=== PATIENT | female | born 1960 | race Caucasian/White ===

== ENCOUNTER 2021-12-30 05:35 | Emergency (ER) | payer OTHER ==
[2021-12-30 07:19] LABS: Absolute Lymphocytes (CBC) 0.5 K/uL (0.7-4.9); Lymphocytes % 14.3 % (15.3-44.8)
[2021-12-30 07:31] LABS: Albumin 3.2 g/dL (3.4-5.0); Bilirubin Total 0.7 mg/dL (0.2-1.0); Potassium 4.9 mmol/L (3.5-5.1); Protein, Total 7.1 g/dL (6.4-8.2)
[2021-12-30 07:50] LABS: RBC Red Blood Cell Count 2.46 M/uL (3.86-4.86)
[2021-12-30 07:52] LABS: Hematocrit 24.3 % (36.0-45.0)
[2021-12-30] MEDS ORDERED: LACTULOSE 20 GM/30 ML UCUP ONE (07:58)
--- NOTE | 2021-12-30 08:01 | EDPHYS ---
Physician Documentation [facility] Name: Vaishali Mariano Age: 61 yrs Sex: Female : 1960 Arrival Date: 12/30/2021 Time: 05:46 Bed 18 Private MD: ED Physician Marco Antonio Johnson HPI: 12/30 07:54 This 61 yrs old Female presents to ER via Wheelchair with complaints of Abdominal kb Problem. 07:54 The patient presents with abdominal distention. Onset: The symptoms/episode kb began/occurred yesterday. The symptoms do not radiate. Associated signs and symptoms: none. The symptoms are described as tightness. Modifying factors: The symptoms are alleviated by nothing, the symptoms are aggravated by nothing. Severity of pain: At its worst the pain was mild in the emergency department the pain is unchanged. The patient has experienced similar episodes in the past, chronically. The patient has not recently seen a physician. Pt states she normally gets a paracentesis done weekly. Last time was December 22. Came in this morning because she feels like she needs a paracentesis, abd is tighter than normal. Denies SOB. [place] Has appt for paracentesis scheduled for Saturday. Historical: - Allergies: 06:02 PENICILLINS; al4 - PMHx: 06:04 liver cancer; insulin dependent; kidney failure stage 5; al4 - Immunization history:: Adult Immunizations unknown. - Social history:: Smoking status: Patient reports the use of cigarette tobacco products, denies chronic smoking, but will smoke occasionally. ROS: 07:47 Constitutional: Negative for fever, chills, and weight loss. kb 07:47 Abdomen/GI: Positive for abdominal distension. 07:47 All other systems are negative. Exam: 07:48 Constitutional: This is a well developed, well nourished patient who is awake, alert, kb and in no acute distress. Head/Face: Normocephalic, atraumatic. ENT: Moist Mucous membranes Cardiovascular: Regular rate and rhythm with a normal S1 and S2. No gallops, murmurs, or rubs. No pulse deficits. Respiratory: Respirations even and unlabored. No increased work of breathing. Talking in full sentences Abdomen/GI: Soft, non-tender. No distention Skin: Warm, dry with normal turgor. Normal color. MS/ Extremity: Pulses equal, no cyanosis. Neurovascular intact. Full, normal range of motion. 07:48 Neuro: Orientation: to person, place, time \\T\\ situation. Mentation: able to follow commands, sleepy. Vital Signs: 06:00 BP 97 / 56; Pulse 80; Resp 20 S; Temp 97.6(O); Pulse Ox 100% on R/A; Pain 5/10; al4 09:00 BP 96 / 55; Pulse 80; Resp 16; Pulse Ox 98% ; cb5 10:46 BP 113 / 71; Pulse 77; Resp 16; Pulse Ox 100% ; Pain 0/10; cb5 11:15 BP 91 / 57; Pulse 80; Resp 16; Pulse Ox 99% ; cb5 11:45 BP 97 / 48; Pulse 66; Resp 16; Pulse Ox 98% ; Pain 0/10; cb5 MDM: 06:47 Patient medically screened. kb 07:48 Data reviewed: vital signs, nurses notes. Data interpreted: Pulse oximetry: on room air kb is 100 %. Interpretation: normal. Counseling: I had a detailed discussion with the patient and/or guardian regarding: the historical points, exam findings, and any diagnostic results supporting the discharge/admit diagnosis, lab results, the need for further work-up and treatment in the hospital. 07:56 Physician consultation: Jesus Ware MD was contacted at 07:56, regarding admission, kb to the telemetry unit. patient's condition, and will see patient in ED. ED course: Pt states her creatinine is normally 4. States she is supposed to get started on dialysis next week, has preop scheduled. . 09:05 ED course: Dr Ware evaluated pt in ER. Pt is refusing admission at this time. Dr Chaz lux recommended second dose of lactulose (lactulose enema preferred, but pt refuses at this time) and a dose of midodrine 10mg PO (pt's home med). Medications ordered. Will speak to pt about admission again after administration. in agreement with whatever pt wants to do. . 09:12 ED course: Pt vomited and now in agreement with lactulose enema. Ordered. kb 12:04 ED course: Pt more alert and awake after treatment. Pt wants to leave, has flight home [place] yesterday and appts set up for next week. in agreement with leaving. Will discharge home with strict return precautions. . 12/30 06:54 Order name: CBC with Diff; Complete Time: 08:40 kb 12/30 06:54 Order name: CMP; Complete Time: 07:39 kb 12/30 06:54 Order name: Lipase; Complete Time: 07:39 kb 12/30 06:54 Order name: AMMONIA; Complete Time: 07:39 kb 12/30 07:22 Order name: CBC Smear Scan; Complete Time: 08:40 EDMS 12/30 08:01 Order name: COVID-19 SARS RT PCR (Document "Date of Onset" if Symptomatic); Complete kb Time: 09:12/30 06:54 Order name: IV Saline Lock; Complete Time: 07:09 kb 12/30 06:54 Order name: Labs collected and sent; Complete Time: 07:54 kb Administered Medications: 07:55 Drug: Lactulose 20 grams Volume: 30 ml; Route: PO; cb5 09:10 Drug: NS 0.9% 250 ml Route: IV; Rate: calculated rate; Site: left antecubital; cb5 09:12 CANCELLED (Duplicate Order): Lactulose 20 grams 30 ml PO once kb 10:28 Drug: Lactulose 200 grams Route: IL; cb5 11:24 Drug: midodrine 10 mg Route: PO; cb5 Disposition: 12/31 09:35 Co-signature as Attending Physician, Marco Antonio Johnson MD I agree with the assessment and kdr plan of care. Disposition Summary: 12/30/21 12:07 Discharge Ordered Location: Home(12/30/21 12:07) kb Condition: Stable(12/30/21 12:07) kb Diagnosis - Hyperammonemia kb - Anemia in chronic kidney disease(12/30/21 12:07) kb - Chronic kidney disease, unspecified(12/30/21 12:07) kb Followup: kb - With: Emergency Department - When: As needed - Reason: Worsening of condition Followup: kb - With: Private Physician - When: 1 - 2 days - Reason: Recheck today's complaints Forms: - Medication Reconciliation Form kb - Thank You Letter kb - Antibiotic Education kb - Prescription Opioid Use kb Signatures: Dispatcher [employer] EDJennifer Bryson FNP-C FNP-Ckb Rittger, Marco Antonio, MD MD [facility] Sarthak Martin al4 Gabbi Hummel, RN RN cb5 Corrections: (The following items were deleted from the chart) 12/30 07:53 07:48 Neuro: Orientation: Mentation: able to follow commands, sleepy, kb kb 07:57 07:54 Pt states she normally gets a paracentesis done weekly. Last time was Saturday, kb December 22. Came in this morning because she feels like she needs a paracentesis, abd is tighter than normal. Denies SOB. [place]. . kb 09:12 09:04 Lactulose 20 grams 30 ml PO once ordered. kb kb 09:15 09:05 ED course: Dr Ware evaluated pt in ER. Pt is refusing admission at this time. Dr jose j Ware recommended second dose of lactulose and a dose of midodrine 10mg PO (pt's home med). Medications ordered. Will speak to pt about admission again after administration. in agreement with whatever pt wants to do. . kb 12: 08:00 Observation kb kb 12: 08:00 Jesus Ware kb kb 12: 08:00 Telemetry/MedSurg (observation) kb kb 12: 08:00 Fair kb kb 12: 08:00 an acute exacerbation kb kb 12: 08:00 are unchanged kb kb 12: 08:00 Standard kb kb 12:06 08:00 kb kb 12:06 08:00 Other encephalopathy - hepatic kb kb 12: 08:00 Anemia in chronic kidney disease kb kb 12: 08:00 Chronic kidney disease, unspecified kb kb
--- NOTE | 2021-12-30 08:01 | ER ---
Nurse's Notes [facility] Name: Vaishali Mariano Age: 61 yrs Sex: Female : 1960 Arrival Date: 12/30/2021 Time: 05:46 Bed 18 Private MD: Diagnosis: Hyperammonemia;Anemia in chronic kidney disease;Chronic kidney disease, unspecified Presentation: 12/30 06:00 Chief complaint: Patient states: abdominal pain. patient gets a paracentesis done al4 weekly and has an appointment on Saturday. patient states she needs a paracentesis today and that's what brought her in to the ED. patient is supposed to be setting up dialysis when she gets back from vacation. patients story is difficult to follow/understand, is not able to help explain as he does not understand either. Coronavirus screen: Vaccine status: Patient reports being unvaccinated. Ebola Screen: No symptoms or risks identified at this time. Initial Sepsis Screen: Does the patient meet any 2 criteria? No. Patient's initial sepsis screen is negative. Does the patient have a suspected source of infection? No. Patient's initial sepsis screen is negative. Risk Assessment: Do you want to hurt yourself or someone else? Patient reports no desire to harm self or others. Onset of symptoms was December 30, 2021. 06:00 Method Of Arrival: Wheelchair al4 06:00 Acuity: GEORGI 3 al4 Triage Assessment: 06:02 General: Appears in no apparent distress. uncomfortable, Behavior is calm. Pain: al4 Complains of pain in abdomen. Neuro: Level of Consciousness is awake, alert, confused, Oriented to person, place. Cardiovascular: Capillary refill < 3 seconds Patient's skin is warm and dry. Respiratory: Airway is patent Respiratory effort is unlabored. GI: Abdomen is distended, BM yesterday. Musculoskeletal: Circulation, motion, and sensation intact. Historical: - Allergies: 06:02 PENICILLINS; al4 - PMHx: 06:04 liver cancer; insulin dependent; kidney failure stage 5; al4 - Immunization history:: Adult Immunizations unknown. - Social history:: Smoking status: Patient reports the use of cigarette tobacco products, denies chronic smoking, but will smoke occasionally. Screenin:05 Abuse screen: Denies threats or abuse. Nutritional screening: appears thin. sf1 Tuberculosis screening: No symptoms or risk factors identified. Fall Risk None identified. Assessment: 06:05 General: Appears in no apparent distress. uncomfortable, Behavior is calm, cooperative, sf1 appropriate for age. Pain: Complains of pain in abdomen. Pain: Pain currently is 5 out of 10 on a pain scale. Neuro: Level of Consciousness is confused, thoughts are difficult to follow. Cardiovascular: No deficits noted. Respiratory: No deficits noted. GI: Abdomen is round noted to have ascites. : Reports small amount of urination, has end stage kidney disease. Derm: Skin is jaundiced. 07:00 General: Appears in no apparent distress. Behavior is calm, cooperative, appropriate cb5 for age. Pain: Complains of pain in abdomen Pain currently is 1 out of 10 on a pain scale. Neuro: Level of Consciousness is awake, alert, confused. Cardiovascular: No deficits noted. Respiratory: No deficits noted. GI: Abdomen is round noted to have ascites, Bowel sounds present X 4 quads. : Reports. EENT: No signs and/or symptoms were reported regarding the EENT system. Derm: Skin is jaundiced. Musculoskeletal: No deficits noted. 08:00 Reassessment: Patient and/or family updated on plan of care and expected duration. Pain cb5 level reassessed. 09:00 Reassessment: Patient and/or family updated on plan of care and expected duration. Pain cb5 level reassessed. 09:30 General: requested midorine from pharmacy and enema. cb5 10:00 Reassessment: Patient and/or family updated on plan of care and expected duration. Pain cb5 level reassessed. 10:30 General: pharmacy is sending midorine to ER. cb5 11:30 General: pt tolerated lactulose enema, had good results. cb5 12:01 Reassessment: pt stated she wants to go home.. cb5 12:28 Reassessment: pt refusing nurse to take vital signs, wants to go home. cb5 Vital Signs: 06:00 BP 97 / 56; Pulse 80; Resp 20 S; Temp 97.6(O); Pulse Ox 100% on R/A; Pain 5/10; al4 09:00 BP 96 / 55; Pulse 80; Resp 16; Pulse Ox 98% ; cb5 10:46 BP 113 / 71; Pulse 77; Resp 16; Pulse Ox 100% ; Pain 0/10; cb5 11:15 BP 91 / 57; Pulse 80; Resp 16; Pulse Ox 99% ; cb5 11:45 BP 97 / 48; Pulse 66; Resp 16; Pulse Ox 98% ; Pain 0/10; cb5 ED Course: 05:46 Patient arrived in ED. es 05:50 Marco Antonio Johnson MD is Attending Physician. kdr 06:02 Triage completed. al4 06:02 Arm band placed on. al4 06:05 Liza Davis, RN is Primary Nurse. sf1 06:05 Patient has correct armband on for positive identification. sf1 06:05 Inserted saline lock: 18 gauge in right forearm, using aseptic technique. Blood sf1 collected. 06:47 Jennifer Valencia [facility]-C [facility] kb 07:09 AMMONIA Sent. cb5 07:09 CBC with Diff Sent. cb5 07:09 Lipase Sent. cb5 07:09 CMP Sent. cb5 07:23 Bed in low position. Call light in reach. Side rails up X 1. Adult w/ patient. Warm mh5 blanket given. playground monitor on. Pulse ox on. NIBP on. 07:54 CBC Smear Scan Sent. cb5 07:57 Jesus Ware MD is Hospitalizing Provider. kb 12:30 IV discontinued. cb5 Administered Medications: 07:55 Drug: Lactulose 20 grams Volume: 30 ml; Route: PO; cb5 09:10 Drug: NS 0.9% 250 ml Route: IV; Rate: calculated rate; Site: left antecubital; cb5 09:12 CANCELLED (Duplicate Order): Lactulose 20 grams 30 ml PO once kb 10:28 Drug: Lactulose 200 grams Route: GA; cb5 11:24 Drug: midodrine 10 mg Route: PO; cb5 Outcome: 08:00 Decision to Hospitalize by Provider. kb 12:07 Discharge ordered by . kb 12:30 Discharged to home via wheelchair. cb5 12:30 Condition: stable 12:30 Discharge instructions given to patient. 12:30 Patient left the ED. cb5 Signatures: Jennifer Valencia FNP-C FNP-Marco Antonio Saldivar MD MD kdr Salyer, Edna es Martinez, [facility] Sarthak Martin Colleen RN RN cb5 Liza Davis RN RN sf1 Corrections: (The following items were deleted from the chart) 06: 06:00 Chief complaint: Patient states: abdominal pain. patient gets a paracentesis done al4 weekly and has an appointment on Saturday. patient states she needs a paracentesis today and that's what brought her in to the ED al4 : 06:00 BP 97 / 56; Pulse 80bpm; Resp 20bpm; Spontaneous; Pulse Ox 100% RA; Temp 97.6F al4 Oral; al4 06: 06:02 GI: Abdomen is distended, al4 al4 06: 06:02 Neuro: Level of Consciousness is awake, alert, obeys commands, confused, Oriented al4 to person, place, al4 06:08 06:05 Neuro: Level of Consciousness is confused, thoughts are difficult to follow. sf1 al4 06: 06:00 Chief complaint: Patient states: abdominal pain. patient gets a paracentesis done al4 weekly and has an appointment on Saturday. patient states she needs a paracentesis today and that's what brought her in to the ED. patient is supposed to be setting up dialysis when she gets back from vacation. al4
[2021-12-30 08:31] LABS: Blood Morphology Comment NOTED (NOT SEEN); Platelet Estimate ADEQ; White Blood Cell Scan OK (OK)
[2021-12-30 08:32] LABS: Agglutinates, Cold (RBC Morph) NOTED
[2021-12-30] MEDS ORDERED: LACTULOSE 20 GM/30 ML UCUP PR SCH (10:00)
[2021-12-30] MEDS ORDERED: NA CHLORIDE 0.9% 1,000 ML ONE (10:40)
[2021-12-30] MEDS ORDERED: MIDODRINE HCL 5 MG TABLET PO SCH (11:00)
--- NOTE | 2021-12-30 11:56 | P.CNS ---
Date of Consult: 12/30/21 Reason for Consult: hyptension, altered mental status Requesting Physician: Jennifer Valencia Primary Care Provider: out of town Chief Complaint: wants paracentesis, agitated History of Present Illness: 61yo F, PMH: liver cancer/cirrhosis on lactulose and rifaximin, CKD 5, hypotension on midodrine, insulin-dependent diabetes mellitus type 2, portal vein thrombosis Presents to the ED requesting paracentesis. Patient is from [place] and here visiting the last few days. She has paracentesis weekly, currently scheduled for Saturday. She has had some slight increase in feeling tired and slight confusion since yesterday. She is alert and oriented x4. She denies any fever/chills, no abdominal pain, no nausea/vomiting. She reports taking her lactulose daily, only had a small bowel movement yesterday. She has not had as regular bowel movements she typically has back home. She reports having chronic kidney disease and scheduled to follow-up with nephrology back home this coming week to initiate dialysis. In the ED, patient's creatinine: 4.5 which she states her baseline is in the low fours, systolic blood pressure was as low as in the 80s, which she states is normal for her, takes midodrine. She did not take her medication this morning, and was noted to hyperammonemia > 200 ED provider requested consultation for possible observation of the patient. Patient adamantly refused admission. - Past Medical/Surgical History -: liver cancer -: CKD5 -: IDDM2 -: hypotension -: Portal vein thrombosis Past Surgical History: Unable to obtain - Social History Smoking Status: Former smoker Alcohol use: No Place of Residence: Home Review of Systems 10-point ROS is otherwise unremarkable Physical Examination General: Alert, Oriented x3, Other (appears tired, slow to answer at times, slight confusion on certain specific details) HEENT: EOMI, Sclerae nonicteric Neck: Supple, No LAD Respiratory: Clear to auscultation bilaterally, Normal air movement Cardiovascular: Regular rate/rhythm, No murmurs, Edema (trace-1+ b/l pedal edema) Gastrointestinal: Other (soft, nontender, +ascites) Musculoskeletal: No erythema, No tenderness Integumentary: No rashes, No significant lesion Neurological: Normal speech, Normal strength at 5/5 x4 extr, Other (slow to answer) Laboratory Data (last 24 hrs) 12/30/21 06:55: Sodium 136, Potassium 4.9, BUN 68 H, Creatinine 4.52 H, Glucose 157 H, Total Bilirubin 0.7, AST 17, ALT 18, Alkaline Phosphatase 179 H, Lipase 231 12/30/21 06:55: WBC 3.50 L, Hgb 8.1 L, Hct 24.3 L, Plt Count 198 Physician Review Additional Text: Problem list Slight confusion, ascites, secondary to liver cirrhosis CKD5 History of liver cancer Hypotension Insulin-dependent diabetes mellitus type 2 Portal vein thrombosis, on Eliquis Patient is from [place], has a flight tomorrow at 5 AM. Scheduled for paracentesis on Saturday back home Scheduled to follow-up with nephrology this coming week to initiate dialysis Patient's ammonia level is elevated, she appears tired and with some slight confusion, however oriented x4; appears to have some very mild hepatic encephalopathy Spoke to the patient and her significant other at length, she is refusing admission, threatening to leave the hospital AMA states he would like her to be better before going home, but also wants to respect her wishes of what she wants to do After discussion with patient and her significant other, it seems patient has not been taking her lactulose as much as she should, leading to hyperammonemia Blood pressure is low as well, she takes midodrine 3 times a day, did not take this morning Given that patient does not want to be admitted to the hospital, seems to be understanding of the risks involved, and has close scheduled follow-up I think it would be within reason to give patient more lactulose / lactulose enema, restart home midodrine dose, a small bolus of IV fluid If she improves could be discharged from the ER No evidence of peritonitis, does not appear septic Explained to the patient and to titrate lactulose dosing to have 23 regular soft bowel movements daily Time Spent Managing Pts care (In Minutes): 60
[2021-12-30 12:54] VITALS: TEMP 97.6
[2021-12-30 12:59] VITALS: BP 97/48; O2SAT 98
== END 2021-12-30 12:30 | disposition home or self-care (01) ==
LOC: ER 05:35
DX: E72.20 Disorder of urea cycle metabolism, unspecified (principal); E11.22 Type 2 diabetes mellitus with diabetic chronic kidney disease; N18.5 Chronic kidney disease, stage 5; D63.1 Anemia in chronic kidney disease; F17.210 Nicotine dependence, cigarettes, uncomplicated; I81 Portal vein thrombosis; I95.9 Hypotension, unspecified; K74.60 Unspecified cirrhosis of liver; Z79.4 Long term (current) use of insulin; Z20.822 Contact with and (suspected) exposure to COVID-19; Z88.0 Allergy status to penicillin; Z85.05 Personal history of malignant neoplasm of liver; Z79.01 Long term (current) use of anticoagulants
CPT/HCPCS: 85025; 36415; 82140; 83690; 80053; 96374; 99284; U0003; J7030

== ENCOUNTER 2022-03-22 01:48 | Inpatient (IN) | payer OTHER ==
[2022-03-22 03:21] LABS: Protime INR 1.25
[2022-03-22 03:29] LABS: Albumin 2.4 g/dL (3.4-5.0); Potassium 3.9 mmol/L (3.5-5.1); Protein, Total 6.6 g/dL (6.4-8.2)
[2022-03-22] MEDS ORDERED: NA CHLORIDE 0.9% 250 ML ONE ×2 (03:31→04:47)
[2022-03-22 03:43] LABS: Absolute Lymphocytes (CBC) 0.7 K/uL (0.7-4.9); Hematocrit 29.7 % (36.0-45.0); Lymphocytes % 10.1 % (15.3-44.8); MPV 7.8 fL (7.6-11.3); RBC Red Blood Cell Count 3.05 M/uL (3.86-4.86)
--- NOTE | 2022-03-22 04:28 | ER ---
Nurse's Notes [facility] Name: Vaishali Mariano Age: 61 yrs Sex: Female : 1960 Arrival Date: 03/22/2022 Time: 01:50 Bed 13 Private MD: Diagnosis: Other ascites;End stage renal disease;Hypotension, unspecified;Hepatic Encephalopathy;Hypo-osmolality and hyponatremia Presentation: 03/22 02:01 Chief complaint: Patient states: "I need to have a paracentesis done"; Patient reports lp1 abdominal pain, nausea; Reports last paracentesis was 2 days ago; Currently being treated for colon and liver cancer. Coronavirus screen: At this time, the client does not indicate any symptoms associated with coronavirus-19. Ebola Screen: No symptoms or risks identified at this time. Risk Assessment: Do you want to hurt yourself or someone else? Patient reports no desire to harm self or others. Onset of symptoms was March 22, 2022. 02:01 Method Of Arrival: Wheelchair lp1 02:01 Acuity: GEORGI 2 lp1 02:04 Initial Sepsis Screen: Does the patient meet any 2 criteria? No. Patient's initial lp1 sepsis screen is negative. Does the patient have a suspected source of infection? No. Patient's initial sepsis screen is negative. Historical: - Allergies: 02:03 PENICILLINS; lp1 - Home Meds: 02:03 Unable to obtain [Active]; lp1 - PMHx: 02:03 insulin dependent; kidney failure stage 5; liver cancer; lp1 - Immunization history:: Client reports having NOT received the Covid vaccine. - Social history:: Smoking status: Patient reports the use of cigarette tobacco products, denies chronic smoking, but will smoke occasionally. - Family history:: not pertinent. - Hospitalizations: : No recent hospitalization is reported. Screenin:29 Abuse screen: Denies threats or abuse. Denies injuries from another. Nutritional lg3 screening: No deficits noted. Tuberculosis screening: No symptoms or risk factors identified. Fall Risk None identified. Assessment: 03:29 General: Appears in no apparent distress. uncomfortable, Behavior is calm, cooperative, lg3 flat. Pain: Complains of pain in abdomen. Neuro: Scott Agitation-Sedation Scale (RASS): -1 Drowsy Level of Consciousness is alert, obeys commands, Oriented to person, place, time, situation, Speech is normal. Cardiovascular: No deficits noted. Denies chest pain, shortness of breath, Capillary refill < 3 seconds Clubbing of nail beds is absent JVD is absent Patient's skin is warm and dry. Respiratory: No deficits noted. Airway is patent Trachea midline Respiratory effort is even, unlabored, Respiratory pattern is regular, symmetrical. GI: Abdomen is round distended, noted to have ascites, Bowel sounds present X 4 quads. Abdomen is tender to palpation X 4 quads. Reports lower abdominal pain, upper abdominal pain, bloating, nausea. : No deficits noted. No signs and/or symptoms were reported regarding the genitourinary system. EENT: No deficits noted. No signs and/or symptoms were reported regarding the EENT system. Derm: Skin is intact, is thin, Skin is dry, Skin temperature is warm generalized bruising noted to bilateral arms. dialysis port noted to right chest. Musculoskeletal: Circulation, motion, and sensation intact. Range of motion: intact in all extremities. 04:20 Reassessment: Patient appears in no apparent distress at this time. No changes from lg3 previously documented assessment. Patient and/or family updated on plan of care and expected duration. Pain level reassessed. Patient is alert, oriented x 3, equal unlabored respirations, skin warm/dry/pink. Vital Signs: 02:04 BP 82 / 51; Pulse 98; Resp 20; Temp 97.9(O); Pulse Ox 100% on R/A; Weight 56.25 kg (R); lp1 Height 5 ft. 7 in. (170.18 cm); Pain 10/10; 02:09 BP 85 / 49; lp1 03:29 BP 92 / 56; Pulse 92; Resp 19; Pulse Ox 99% on R/A; lg3 04:19 BP 97 / 62; Pulse 80; Resp 19; Pulse Ox 100% on R/A; lg3 06:43 BP 99 / 61; Pulse 91; Resp 19; Pulse Ox 100% on R/A; lg3 02:04 Body Mass Index 19.42 (56.25 kg, 170.18 cm) lp1 ED Course: 01:50 Patient arrived in ED. ja2 01:51 Alberto Ware MD is Attending Physician. rn 02:01 Arm band placed on left wrist. lp1 02:03 Triage completed. lp1 02:24 Sandra Sheikh, RN is Primary Nurse. lg3 02:35 Ptt, Activated Sent. lg3 02:35 PT-INR Sent. lg3 02:35 CBC with Diff Sent. lg3 02:35 CMP Sent. lg3 02:35 Lipase Sent. lg3 03:20 Lactate Sent. lg3 03:20 SARS-COV-2 RT PCR (Document "Date of Onset" if Symptomatic) Sent. lg3 03:20 Procalcitonin Sent. lg3 03:21 Urine Drug Screen Sent. lg3 03:21 Ptt, Activated Sent. lg3 03:23 Blood Culture Adult (2) Sent. lg3 03:23 CBC with Diff Sent. lg3 03:23 CMP Sent. lg3 03:23 Lipase Sent. lg3 03:23 Inserted saline lock: 22 gauge in left antecubital area, using aseptic technique. Blood lg3 collected. 03:29 Patient has correct armband on for positive identification. Placed in gown. Bed in low lg3 position. Call light in reach. Side rails up X 1. Client placed on continuous cardiac and pulse oximetry monitoring. NIBP monitoring applied. library monitor on. Door closed. Noise minimized. Warm blanket given. Family accompanied patient. 03:39 Abdomen In Process Unspecified. EDMS 04:26 Jesus Ware MD is Hospitalizing Provider. rn 04:45 AMMONIA Sent. lg3 06:42 No provider procedures requiring assistance completed. Patient admitted, IV remains in lg3 place. 07:16 Primary Nurse role handed off by Sandra Sheikh, RN tw2 07:16 Esperanza Rico RN is Primary Nurse. tw2 Administered Medications: 03:35 Not Given (medication not avaliable ): midodrine 5 mg PO once lg3 04:19 Drug: NS 0.9% 250 ml Route: IV; Rate: bolus; Site: left antecubital; lg3 04:59 Follow up: Response: No adverse reaction; IV Status: Completed infusion; IV Intake: lg3 250ml 04:45 Drug: NS 0.9% 250 ml Route: IV; Rate: bolus; Site: left antecubital; lg3 04:58 Follow up: Response: No adverse reaction; IV Status: Completed infusion; IV Intake: lg3 250ml 04:58 Drug: midodrine 5 mg Route: PO; lg3 04:59 Follow up: Response: No adverse reaction lg3 04:58 Drug: Lactulose 20 grams Volume: 30 ml; Route: PO; lg3 04:59 Follow up: Response: No adverse reaction lg3 Medication: 02:04 VIS not applicable for this client. lp1 Intake: 04:58 IV: 250ml; Total: 250ml. lg3 04:59 IV: 250ml; Total: 500ml. lg3 Outcome: 04:28 Decision to Hospitalize by Provider. rn 06:42 Admitted to ER Hold. Please see [facility] for further documentation. lg3 06:42 Condition: stable 06:42 Instructed on the need for admit. 12:38 Patient left the ED. ss Signatures: Dispatcher [employer] EDMS Alberto Ware MD MD rn Smirch, Shelby RN RN ss Jacey Murphy RN RN lp1 Esperanza Rico RN RN tw2 Sandra Sheikh RN RN lg3 Kyra Montes Corrections: (The following items were deleted from the chart) 02:09 02:01 Acuity: GEORGI 3 lp1 lp1
--- NOTE | 2022-03-22 04:28 | EDPHYS ---
Physician Documentation [facility] Name: Vaisahli Mariano Age: 61 yrs Sex: Female : 1960 Arrival Date: 03/22/2022 Time: 01:50 Bed 13 Private MD: ED Physician Alberto Ware HPI: 03/22 02:56 This 61 yrs old Female presents to ER via Wheelchair with complaints of Abdominal rn Problem. 02:56 The patient presents with abdominal pain that is diffuse. Onset: The symptoms/episode rn began/occurred last night. The symptoms do not radiate. Associated signs and symptoms: Pertinent negatives: nausea and vomiting, blood in stools, fever, vomiting blood. The symptoms are described as achy, crampy. 02:58 Modifying factors: The symptoms are alleviated by nothing, the symptoms are aggravated rn by movement, touching the area. Severity of pain: At its worst the pain was moderate in the emergency department the pain is unchanged. The patient has experienced similar episodes in the past. The patient has not recently seen a physician. Pt reports here on vacation, has been on beach last 2 days. No fever. Has colon cancer, and gets paracentesis weekly on mondays. Is here from [place]. Is supposed to take midodrine and unsure if taking right now. Missed 2 sessions of dialysis. . Historical: - Allergies: 02:03 PENICILLINS; lp1 - Home Meds: 02:03 Unable to obtain [Active]; lp1 - PMHx: 02:03 insulin dependent; kidney failure stage 5; liver cancer; lp1 - Immunization history:: Client reports having NOT received the Covid vaccine. - Social history:: Smoking status: Patient reports the use of cigarette tobacco products, denies chronic smoking, but will smoke occasionally. - Family history:: not pertinent. - Hospitalizations: : No recent hospitalization is reported. ROS: 02:58 Constitutional: Negative for fever, chills, and weight loss, Eyes: Negative for injury, rn pain, redness, and discharge, Cardiovascular: Negative for chest pain, palpitations, and edema, Respiratory: Negative for shortness of breath, cough, wheezing, and pleuritic chest pain, Abdomen/GI: + abd pain and distension MS/Extremity: Negative for injury and deformity, Skin: Negative for injury, rash, and discoloration, Neuro: Negative for headache, numbness, tingling, and seizure. Exam: 02:58 Constitutional: Thin female, somnolent but answers all questions and awakens to voice. rn Head/Face: Normocephalic, atraumatic. Eyes: Sunken eyes, Periorbital areas with no swelling, redness, or edema. ENT: dry MM Cardiovascular: tachycardic, regular. No pulse deficits. Respiratory: No increased work of breathing, no retractions or nasal flaring. Abdomen/GI: + distended abdomen with fluid wave, no peritoneal signs. Skin: Warm, dry MS/ Extremity: Pulses equal, no cyanosis. Neurovascular intact. Full, normal range of motion. Equal circumference. Neuro: Awake and alert, GCS 15 Vital Signs: 02:04 BP 82 / 51; Pulse 98; Resp 20; Temp 97.9(O); Pulse Ox 100% on R/A; Weight 56.25 kg (R); lp1 Height 5 ft. 7 in. (170.18 cm); Pain 10/10; 02:09 BP 85 / 49; lp1 03:29 BP 92 / 56; Pulse 92; Resp 19; Pulse Ox 99% on R/A; lg3 04:19 BP 97 / 62; Pulse 80; Resp 19; Pulse Ox 100% on R/A; lg3 06:43 BP 99 / 61; Pulse 91; Resp 19; Pulse Ox 100% on R/A; lg3 02:04 Body Mass Index 19.42 (56.25 kg, 170.18 cm) lp1 MDM: 01:51 Patient medically screened. rn 03:43 ED course: Elevated lactate, going slow with fluids 2/2 cirrhosis and ESRD. No source rn of infection identified at this time.. 04:23 Differential diagnosis: bowel obstruction, diverticulitis, non-specific abd pain, rn pancreatitis, ascites, ESRD, sepsis. Data reviewed: vital signs, nurses notes, lab test result(s), radiologic studies, CT scan, and as a result, I will admit patient. Counseling: I had a detailed discussion with the patient and/or guardian regarding: the historical points, exam findings, and any diagnostic results supporting the discharge/admit diagnosis, lab results, radiology results, the need for further work-up and treatment in the hospital. Response to treatment: the patient's symptoms have mildly improved after treatment, and as a result, I will admit patient. ED course: Pt with missed dialysis, tense ascites, low blood pressure. Will admit for evaluation of dialysis and paracentesis. . 03/22 02:19 Order name: CBC with Diff; Complete Time: 03:47 rn 03/22 02:19 Order name: CMP; Complete Time: 03:42 rn 03/22 02:19 Order name: Lipase; Complete Time: 03:42 rn 03/22 02:19 Order name: PT-INR; Complete Time: 03:42 rn 03/22 02:19 Order name: Ptt, Activated; Complete Time: 03:42 rn 03/22 02:37 Order name: Urine Drug Screen rn 03/22 02:37 Order name: Blood Culture Adult (2) rn 03/22 02:37 Order name: Procalcitonin; Complete Time: 03:42 rn 03/22 02:37 Order name: SARS-COV-2 RT PCR (Document "Date of Onset" if Symptomatic); Complete Time: rn 04:03/22 02:38 Order name: Lactate; Complete Time: 03:31 rn 03/22 04:31 Order name: AMMONIA la1 03/22 04:33 Order name: Urine Osmolality la1 03/22 04:33 Order name: Osmolality, Serum la1 03/22 04:33 Order name: Urine Sodium Random la1 03/22 02:19 Order name: IV Saline Lock; Complete Time: 03:23 rn 03/22 02:19 Order name: Labs collected and sent; Complete Time: 03:23 rn 03/22 03:33 Order name: Abdomen EDKY 03/22 04:33 Order name: Urine Potassium Random la1 03/22 04:52 Order name: Chest Single View XRAY la1 03/22 05:58 Order name: Glucose, Ancillary Testing EDKY 03/22 06:34 Order name: Lactate Sepsis 2 HR Follow-up EDKY 03/22 07:48 Order name: Glucose, Ancillary Testing EDKY 03/22 09:57 Order name: Basic Metabolic Panel EDKY 03/22 11:28 Order name: Glucose, Ancillary Testing EDKY 03/22 02:37 Order name: Cardiac monitoring; Complete Time: 03:23 rn 03/22 02:37 Order name: O2 Sat Monitoring; Complete Time: 03:23 rn Administered Medications: 03:35 Not Given (medication not avaliable ): midodrine 5 mg PO once lg3 04:19 Drug: NS 0.9% 250 ml Route: IV; Rate: bolus; Site: left antecubital; lg3 04:59 Follow up: Response: No adverse reaction; IV Status: Completed infusion; IV Intake: lg3 250ml 04:45 Drug: NS 0.9% 250 ml Route: IV; Rate: bolus; Site: left antecubital; lg3 04:58 Follow up: Response: No adverse reaction; IV Status: Completed infusion; IV Intake: lg3 250ml 04:58 Drug: midodrine 5 mg Route: PO; lg3 04:59 Follow up: Response: No adverse reaction lg3 04:58 Drug: Lactulose 20 grams Volume: 30 ml; Route: PO; lg3 04:59 Follow up: Response: No adverse reaction lg3 Disposition Summary: 03/22/22 04:28 Hospitalization Ordered Provider: Jesus Ware rn Condition: Stable rn Problem: new rn Symptoms: have improved rn Bed/Room Type: Standard rn Hospitalization Status: Inpatient Admission(03/22/22 05:11) rn Location: Intensive Care Unit(03/22/22 11:36) ja1 Room Assignment: 6-(03/22/22 11:36) [facility] Diagnosis - Other ascites rn - End stage renal disease rn - Hypotension, unspecified rn - Hepatic Encephalopathy rn - Hypo-osmolality and hyponatremia rn Forms: - Medication Reconciliation Form rn - SBAR form rn Signatures: Dispatcher [employer] [facility] Alberto Ware MD MD rn Pena, Laura, RN RN lp1 Alexander Owens FNP-C [employer]-Cla1 Saray Mantilla, RN RN Rigoberto Lynch RN RN ja1 Sandra Sheikh, RN RN lg3 Corrections: (The following items were deleted from the chart) 03:31 02:58 Abdomen Pelvis Wo Con+CT.RAD.BRZ ordered. EDKY EDKY 04:58 04:28 Telemetry/MedSurg (observation) rn cg 04:58 04:28 rn cg 05:11 04:28 Observation rn rn 11:36 04:58 BR ER HOLD cg celsa 11:36 04:58 ERHOLD- [facility]
[2022-03-22] MEDS ORDERED: MIDODRINE HCL 5 MG TABLET ONE (04:44)
[2022-03-22] MEDS ORDERED: LACTULOSE 20 GM/30 ML UCUP ONE (04:53)
--- NOTE | 2022-03-22 05:07 | P.HP ---
Certification for Inpatient Patient admitted to: Inpatient With expected LOS: >2 Midnights Patient will require the following post-hospital care: None Practitioner: I am a practitioner with admitting privileges, knowledge of patient current condition, hospital course, and medical plan of care. Services: Services provided to patient in accordance with Admission requirements found in Title 42 Section 412.3 of the Code of Federal Regulations <Alexander Owens - Last Filed: 03/22/22 04:59> Patient History Date of Service: 03/22/22 Reason for admission: Hyponatremia, hepatic encephalopathy History of Present Illness: 61-year-old female history of liver cancer/cirrhosis, ESRD on HD, chronic hypotension on midodrine, diabetes mellitus type 2insulin-dependent who has weekly paracentesis at home in [place] as well as schedule dialysis Saturday presented to the emergency department requesting a paracentesis for abdominal pain and swelling. Her who appears to be primary caregiver has stepped out and is unavailable for additional assistance with history although ED staff reports that they are here on vacation from [place] and had arranged for her to receive dialysis at a place in [place] Saturday and Saturday, she did go on Saturday but was unable to attend dialysis on Saturday they had reportedly been staying at the [facility] last few days. Patient is somnolent, confused appears encephalopathic. She was evaluated in the emergency department her labs were significant for moderate hyponatremia, hyperglycemia, normocytic anemia she does not make urine she had a CT scan of her abdomen pelvis without contrast which revealed large amount of ascites, decreased size of liver, subscapular right hepatic lobe hypodense lesion 4 x 2.5 cm and subscapular medial segment left hepatic lobe lesion measuring 3.7 x 2.2 cm findings could correspond to metastatic disease and/or primary lesion. Patient will require management of hyponatremia, hemodialysis and likely paracentesis during her hospitalization ED read wishes to admit for further evaluation and management. Patient did tolerate a dose of her home medication midodrine as well as a dose of lactulose in the emergency department by mouth her ammonia level is pending although she admits it has been "a while since she took her lactulose". - Past Medical/Surgical History -: liver cancer/cirrhosis -: CKD5 -: IDDM2 -: hypotension -: Portal vein thrombosis Past Surgical History: Unable to obtain Psychosocial/ Personal History: Patient is from [place] where she lives with her - Family History Father History Unknown: Yes - Social History Smoking Status: Unknown if ever smoked Alcohol use: No Place of Residence: Home <Alexander Owensur - Last Filed: 03/22/22 04:59> Date of Service: 03/22/22 <WareTom marquezmond - Last Filed: 03/22/22 18:07> Review of Systems 10-point ROS is otherwise unremarkable Gastrointestinal: Abdominal Pain, Distention Neurological: Confusion <Alexander Owens [place] - Last Filed: 03/22/22 04:59> Physical Examination - Physical Exam General: Alert, In no apparent distress, Oriented x2 HEENT: Atraumatic, PERRLA, Other (MM dry, eyes sunken), EOMI, Sclerae nonicteric Neck: Supple, 2+ carotid pulse no bruit, No LAD Respiratory: Normal air movement, Diminished Cardiovascular: No edema, Regular rate/rhythm, Normal S1 S2 Gastrointestinal: Hypoactive, Distended, Ascites Musculoskeletal: No tenderness Integumentary: No rashes Neurological: Normal tone, Abnormal speech (speech slurred, slow), Abnormal affect (agitated) - Studies Laboratory Data (last 24 hrs) 03/22/22 02:33: PT 13.8 H, INR 1.25, APTT 28.7 03/22/22 02:33: Sodium 121 L, Potassium 3.9, BUN 56 H, Creatinine 7.04 H*, Glucose 197 H, Total Bilirubin 1.0, AST 14 L, ALT 13, Alkaline Phosphatase 183 H, Lipase 234 03/22/22 02:33: WBC 6.9, Hgb 9.7 L, Hct 29.7 L, Plt Count 94 L <Alexander Owens Sergio Burris - Last Filed: 03/22/22 04:59> - Studies Laboratory Data (last 24 hrs) 03/22/22 02:33: PT 13.8 H, INR 1.25, APTT 28.7 03/22/22 02:33: Sodium 121 L, Potassium 3.9, BUN 56 H, Creatinine 7.04 H*, Glucose 197 H, Total Bilirubin 1.0, AST 14 L, ALT 13, Alkaline Phosphatase 183 H, Lipase 234 03/22/22 02:33: WBC 6.9, Hgb 9.7 L, Hct 29.7 L, Plt Count 94 L <Jesus Ware - Last Filed: 03/22/22 18:07> Assessment and Plan - Plan Assessment: Liver cancer/cirrhosis with hepatic encephalopathy, large volume ascites/history portal venous thrombosis Hyponatremia ESRD on HD MWF Diabetes mellitus type 2insulin-dependent with hyperglycemia Chronic hypotension on midodrine Normocytic anemia Plan: Liver cancer/cirrhosis with hepatic encephalopathy, large volume ascites/history portal venous thrombosis: GI to be consulted, continue with lactulose, rifaximin. Patient likely would benefit with paracentesis which should be available tomorrow. We will need to obtain verify/continue home medications in relation to history of venous thrombosis which was documented on previous admission but not mentioned in CT from today. Hyponatremia: Given small 250 cc NS bolus in ER, will continue with normal saline at 50 cc/h recheck chemistry every 4, nephrology consulted for assistance with electrolytes given history of ESRD on HD. Will avoid hypotonic fluids, patient does not make urine for diuresis mucous membranes are dry chest x-ray pending for further volume status evaluation. ESRD on HD MWF: Nephrology consulted dialysis Saturday missed Saturday. Diabetes mellitus type 2insulin-dependent with hyperglycemia: Every 6 hours Accu-Chek, mild sliding scale insulin Chronic hypotension on midodrine: Per chart review patient was on midodrine 10 mg p.o. 3 times daily, this medication has been continued. Normocytic anemia: Suspect anemia of chronic disease we will monitor hemoglobin, transfuse to maintain hemoglobin greater than 7. DVT PPX: Heparin Code status: Full Discharge Plan: Home Plan to discharge in: 72 Hours - Advance Directives Does patient have a Living Will: No Does patient have a Durable POA for Healthcare: No - Code Status/Comfort Care Code Status Assessed: Yes (Full code) Critical Care: No Time Spent Managing Pts Care (In Minutes): 70 <Alexander Owens - Last Filed: 03/22/22 04:59> - Plan Patient seen and examined on rounds this morning. somnolent agree with plan of care as noted above suspect encephalopathy multifactoria - metabolic and hepatic needs dialysis and lactulose lactulose enema ordered monitor in ICU <Jesus Ware - Last Filed: 03/22/22 18:07>
[2022-03-22] MEDS ORDERED: ONDANSETRON 4 MG/2 ML VIAL IV PRN (06:31)
[2022-03-22] MEDS ORDERED: NA CHLORIDE 0.9% 1,000 ML IV SCH (06:31)
[2022-03-22] MEDS: INSULIN -REGULAR HUMAN 50 UNIT/0.5 ML ML SQ SCH ×4 (07:39→21:00)
[2022-03-22] MEDS ORDERED: INSULIN -REGULAR HUMAN 50 UNIT/0.5 ML ML ONE (07:44)
[2022-03-22] MEDS: LACTULOSE 20 GM/30 ML UCUP PO SCH ×3 (08:41→21:00)
[2022-03-22] MEDS: MIDODRINE HCL 5 MG TABLET PO SCH ×3 (08:41→21:00)
[2022-03-22] MEDS: Rifaximin 550 MG Tab PO SCH ×2 (08:41→21:00)
[2022-03-22] MEDS ORDERED: NA CHLORIDE 0.9% 1,000 ML ONE (08:44)
[2022-03-22] MEDS ORDERED: APIXABAN 5 MG TABLET PO SCH (09:00)
[2022-03-22 09:56] LABS: Potassium 4.2 mmol/L (3.5-5.1)
[2022-03-22 09:58] VITALS: O2SAT 100
--- NOTE | 2022-03-22 12:38 | RAD REPORT ---
EXAM DESCRIPTION: RAD - Chest Single View - 03/22/2022 5:16 am CLINICAL HISTORY: ESRD, hyponatremia, AMS, R/O pneumonia/hypervolemia COMPARISON: None. TECHNIQUE: XR CHEST 1 VIEW 03/22/2022 4:52 AM CDT FINDINGS: Cardiac silhouette is normal in size. There is mild interstitial prominence which could be secondary to mild pulmonary edema. There is no pleural effusion. There is no pneumothorax. There are no acute osseous findings. Right IJ central line tip is in the lower SVC. IMPRESSION: No pneumothorax. No definite pneumonia. Electronically signed by: Jasiel Vo MD 03/22/2022 6:18 AM CDT Due to temporary technical issues with the PACS/Fluency reporting system, reports are being signed by the in house radiologists without review as a courtesy to insure prompt reporting. The interpreting radiologist is fully responsible for the content of the report.
[2022-03-22 14:49] LABS: Potassium 4.3 mmol/L (3.5-5.1)
[2022-03-22] MEDS ORDERED: LACTULOSE 20 GM/30 ML UCUP PR ONE (15:00)
[2022-03-22] MEDS ORDERED: NA CHLORIDE 0.9% PR SCH (15:00)
--- NOTE | 2022-03-22 16:03 | CON ---
Date of Consultation: 03/22/2022 Reason For Consult: ESRD on dialysis. History Of Present Illness: Ms. Mariano is a 61-year-old female with complicated past medical his tory significant for history of severe liver cirrhosis, hepatic encephalopathy, ESRD on dialysis, who normally resides in [place], came to [place] for vacation and had her dialysis set up, but however, has not had dialysis for about a week. Since she has come here, last dialysis was last Saturday. S he has been having worsening shortness of breath, altered mental status. She has not been taking her lactulose. [place]. She was appearing confused, encephalopathic. Her husban d brought her to the hospital and states that she has history of noncompliance and does not listen to him. She had a CT scan of her abdomen which showed large amount of ascites along with a mass in her left hepatic lobe consistent with possible hepatocellular carcinoma. The patient is being very leth argic and is unable to give any history at this time and all the history is obtained from review of [facility]. Past Medical History: Significant for history of liver cirrhosis, ESRD, insulin-dependent diabetes, hypotension, and portal vein thrombosis. Surgical history unable to obtain. Social History: The patient is from [place], where she lives with her . She has some famil y here that she has come here to spend time with. Review of Systems: Unable to be obtained. Physical Examination: Vital Signs: At this time are showing temperature of 97.9, pulse rate of 120, blood pressure 121/70, O2 saturation of 100% on room air. General: She appears cachectic. Generalized malaise, weakness, altered mental status. HEENT: Atraumatic head. She has muscle wasting. Lungs: Auscultation of lungs was clear. Abdomen: Distended with fluid thrill and fluid shift. No rebound or guarding was noted. Extremities: Showed muscle wasting and cachexia without any evidence of edema. Laboratory Data: At this time are showing sodium of 121, potassium of 4.2, chloride of 90, BUN of 57 , and creatinine of 7.06. Calcium was 8.1. CBC showing hemoglobin of 9.6 and hematocrit of 9.7, and platelet count of 94. Abdomen and pelvis CT scan images reviewed. Chest x-ray images reviewed. Impression: 1.End-stage renal disease, on dialysis. The patient will need dialysis today. However, because of her low sodium, we will try to dialyze her with a sodium bath of 130 and try to ultrafilter very mini mal at this time as her blood pressure is low and she is slightly tachycardic and may not be able to tolerate much ultrafiltration. We will use albumin as needed to assist with dialysis p.r.n. for hypo tension. 2.Hepatic encephalopathy. Lactulose has been ordered. Rifaximin has been ordered. Monitor closely . 3.Hypotension, currently on midodrine to be given prior to dialysis. 4.Severe noncompliance. 5.History of portal vein thrombosis. 6.Mass in the hepatic lobe, likely consistent with HCC given the underlying cirrhosis. Plan: Patient's condition is very guarded at this time. Continue lactulose and rifaximin. Dialysis per schedule. We will order albumin as needed for pressor support and follow up on lab closely and follow up clinical status. I have counseled on increased risk of with the patient and counsele d on compliance with treatments. LUCY/BETTYE Voice ID: [id number] Report ID: [id number]
[2022-03-22 17:43] LABS: Potassium 4.3 mmol/L (3.5-5.1)
--- NOTE | 2022-03-22 17:45 | RAD REPORT ---
EXAM DESCRIPTION: CT - Abdomen Pelvis Wo Contrast - 03/22/2022 3:37 am CLINICAL HISTORY: 61 years, Female, ABDOMINAL PAIN, ACUTE, NONLOCALIZED COMPARISON: None. TECHNIQUE: Multiple transaxial tomograms of the abdomen and pelvis were performed from the lung base s to the symphysis pubis 5 mm slice thickness at 5 mm interval reconstruction, without administration of IV and oral contrast. Multiplanar reformats in the sagittal and coronal plane were generated and reviewed. This exam was performed according to our departmental dose-optimization protocol, which includes auto mated exposure control, adjustment of the mA and/or kV according to patient size and/or use of iterat simone reconstruction technique. FINDINGS: The lack of IV and oral contrast limits evaluation of solid organs, subtle lesions cannot be excluded. The lung bases demonstrate to be clear there is a inferior portion of a central line. There is large amount of ascites. There is decrease size of the liver. There is subcapsular right hepatic lobe hypodense lesion 4 x 2.5 cm on image 27 and subcapsular medial segment left hepatic lobe lesion measuring 3.7 x 2.2 cm on bari ge 23. Grossly the unopacified pancreas, spleen and adrenal glands demonstrate to be within normal limits, n o significant focal lesions were identified. The gallbladder demonstrated presence of multiple hype rdensities corresponding to cholelithiasis. The kidneys demonstrate to be some mild atrophic. There is no evidence for nephrolithiasis and/or h ydronephrosis. No focal masses were demonstrated. Grossly the unopacified stomach, small bowel and large bowel demonstrate to be within normal limits. There is no evidence for bowel dilatation/or free air. There is mild fecal stasis. The presence of the total left hip plasty limits evaluation of the pelvis. The urinary bladder demonstrate to be within normal limits. The uterus suggest to be atrophic. No sig nificant adnexal masses. The aorta demonstrate minimal atherosclerotic disease. There is no retrope ritoneal lymphadenopathy. The bone windows demonstrate minimal degenerative changes at L4/L5. IMPRESSION: Large amount of ascites. Decreased size of the liver. There is subcapsular right hepatic lobe hypodense lesion 4 x 2.5 cm and subcapsular medial segment le ft hepatic lobe lesion measuring 3.7 x 2.2 cm findings could correspond to metastatic disease/or prim yazmin neoplasm. Cholelithiasis. Mild fecal stasis. Electronically signed by: Calvin Roberts MD 03/22/2022 4:08 AM CDT Due to temporary technical issues with the PACS/Fluency reporting system, reports are being signed by the in house radiologists without review as a courtesy to insure prompt reporting. The interpreting radiologist is fully responsible for the content of the report.
[2022-03-22] MEDS ORDERED: GLUCAGON 1 MG/VIAL IV STA (21:31)
[2022-03-23] MEDS ORDERED: D10W 125 ML IV SCH (00:29)
[2022-03-23] MEDS ORDERED: DEXTROSE 10%-WATER 500 ML IV ONE (00:41)
[2022-03-23] MEDS ORDERED: D5 0.45 NS 1,000 ML IV SCH (01:00)
--- NOTE | 2022-03-23 06:05 | P.HP ---
Certification for Inpatient Patient admitted to: Inpatient With expected LOS: >2 Midnights Practitioner: I am a practitioner with admitting privileges, knowledge of patient current condition, hospital course, and medical plan of care. Services: Services provided to patient in accordance with Admission requirements found in Title 42 Section 412.3 of the Code of Federal Regulations Patient History Date of Service: 03/23/22 Reason for admission: Hyponatremia, hepatic encephalopathy Allergies Penicillins Allergy (Unknown, Verified 03/22/22 06:31) Hives/Rash Home Medications: Insulin Glargine,Hum.rec.anlog [Basaglar Kwikpen U-100] 03/22/22 Lactulose 03/22/22 Midodrine HCl 10 mg PO 03/22/22 Omeprazole 20 mg PO 03/22/22 Ondansetron HCl 4 mg PO 03/22/22 Potassium Chloride 20 meq PO 03/22/22 Rifaximin [Xifaxan] 550 mg PO 03/22/22 - Past Medical/Surgical History Has patient received pneumonia vaccine in the past: No -: liver cancer/cirrhosis -: CKD5 -: IDDM2 -: hypotension -: Portal vein thrombosis Psychosocial/ Personal History: Patient is from [place] where she lives with her - Family History Father History Unknown: Yes - Social History Smoking Status: Unknown if ever smoked Alcohol use: No Place of Residence: Home Physical Examination - Vital Signs Temperature: 97.4 F Blood Pressure: 86/48 Pulse: 95 Respirations: 15 Pulse Ox (%): 100 Assessment and Plan - Plan Patient seen and examined on rounds this morning. somnolent agree with plan of care as noted above suspect encephalopathy multifactoria - metabolic and hepatic needs dialysis and lactulose lactulose enema ordered monitor in ICU - Advance Directives Does patient have a Living Will: No Does patient have a Durable POA for Healthcare: No
--- NOTE | 2022-03-23 06:05 | P.PN ---
Date of Service: 03/23/22 Subjective: more awake/alert, remains slightly confused still agitated demanding to leave AMA family don't want her to leave prematurely ROS: 10 point ROS unable to be obtained due to agitation Physical exam GEN: Alert, orientedx3, agitated, slight confusion, cachectic HEENT: Normal conjunctiva, sclera anicteric, temporal wasting CV: Regular rate and rhythm, no edema Pulm: Nonlabored respirations on room air ABD: Soft, nontender, nondistended Neuro: generalized weakness, b/l lower extremities 4/5 Problem List Liver cancer/cirrhosis with hepatic encephalopathy, large volume ascites/history portal venous thrombosis Hyponatremia ESRD on HD MWF Diabetes mellitus type 2insulin-dependent with hyperglycemia Chronic hypotension on midodrine Normocytic anemia ammonia improved, several BMs after lactulose enema more alert/awake, can take PO continue PO lactulose s/p HD yesterday nephro consulted, HD plan for tomorrow patient was agitated for few hours today, yelling/screaming, wanting to leave stated she knows she can , doesn't care, didn't want HD to begin with, but youngest daughter wanted her to patient seems to understand, but doesn't seem to grasp the severity / gravity of the situation. Flight is not for several days, and will be unable to get HD until back in [place] paracentesis planned for today family state she is not normally like this - and seems confused / altered patient does not appear to have full decision making capacity. It is in her best interest / health to remain hospitalized, continue treatment - lactulose, HD tomorrow family in agreement patient eventually calmed down and agreed to stay until tomorrow suspect patient will demand to leave tomorrow after HD Code: full Dispo: home, ~1-2 days Time Spent Managing Pts Care (In Minutes): 35
[2022-03-23 06:09] LABS: Albumin 2.2 g/dL (3.4-5.0); Bilirubin Total 1.6 mg/dL (0.2-1.0); Potassium 3.2 mmol/L (3.5-5.1); Protein, Total 6.2 g/dL (6.4-8.2)
[2022-03-23 06:26] LABS: Absolute Lymphocytes (CBC) 0.6 K/uL (0.7-4.9); Lymphocytes % 12.3 % (15.3-44.8); MPV 7.6 fL (7.6-11.3); RBC Red Blood Cell Count 2.79 M/uL (3.86-4.86)
[2022-03-23 07:13] LABS: Anisocytosis 1+; Blood Morphology Comment NOTED (NOT SEEN); Platelet Estimate DECR; White Blood Cell Scan OK (OK)
[2022-03-23] MEDS: INSULIN -REGULAR HUMAN 50 UNIT/0.5 ML ML SQ SCH ×4 (07:30→21:54)
[2022-03-23] MEDS: LACTULOSE 20 GM/30 ML UCUP PO SCH ×3 (08:47→21:53)
[2022-03-23] MEDS: MIDODRINE HCL 5 MG TABLET PO SCH ×3 (08:48→21:54)
[2022-03-23] MEDS: Rifaximin 550 MG Tab PO SCH ×2 (08:49→21:53)
[2022-03-23] MEDS: CEFTRIAXONE 1,000 MG in NA CHLORIDE 0.9% 50 ML IVPB SCH ×2 (09:24→20:29)
[2022-03-23] MEDS ORDERED: SODIUM CHLORIDE 0.9% 10ML INJ IV PRN (09:40)
[2022-03-23] MEDS ORDERED: EPOETIN ALFA 10,000 UNIT/ML VIAL IV SCH (10:30)
[2022-03-23] MEDS ORDERED: WATER FOR INJ,STERILE 10 ML IM PRN (12:07)
--- NOTE | 2022-03-23 12:52 | RAD REPORT ---
EXAM DESCRIPTION: US - Paracentesis Proc Guidance - 03/23/2022 11:04 am CLINICAL HISTORY: Liver disease with ascites FINDINGS: The risks, benefits and alternatives to the procedure were explained to the patient and in formed consent obtained. The skin and subcutaneous tissues were anesthetized with Lidocaine. Under sonographic guidance an 8 F rench catheter was placed into the right lower quadrant. 5 liters of yellow fluid removed. Fluid was sent to the lab The patient experienced no immediate complication. IMPRESSION: Paracentesis
--- NOTE | 2022-03-23 14:37 | PN ---
Date of Progress Note: 03/23/2022 Subjective: Patient is seen and examined at bedside. She is doing okay. She is much more alert, aw fabiana and she is scheduled for a paracentesis today. Objective: Vital Signs: Have remained overall stable. Even though she has chronic hypotension, she has not required any pressors at this time. She is n.p.o. and she is currently getting D5 half-norm al saline. General: She appears malnourished, cachectic. HEENT: Shows atraumatic head. Neuro: She is alert and awake. She is oriented to place and person, but not to time. Laboratory Data: At this time showing sodium of 133, potassium of 3.2, chloride of 95, BUN of 28, an d creatinine of 4.14. CBC showing WBC count of 4.9, hemoglobin of 9.5, hematocrit 27, and platelet c ount of 90. Current Medications: Reviewed in detail. Impression: 1.End-stage renal disease, on dialysis. Patient had dialysis yesterday. We will plan for dialysis tomorrow. 2.Severe hepatic cirrhosis with possible hepatocellular cancer leading to chronic hypotension second yazmin to portal hypertension and also hepatic encephalopathy. Patient is currently getting lactulose. We will discontinue IV fluids to avoid further volume overload. For her ascites, she is getting par acentesis done. 3.Anemia secondary to chronic disease. Patient's hemoglobin is stable. We will plan for Epogen wit h dialysis tomorrow. 4.Severe noncompliance, has been counseled. Plan: Patient's condition remains guarded. We will plan for dialysis tomorrow. Plan for paracentes is for her severe ascites. Continue all other medications and discontinue IV fluids to avoid further volume overload. VV/MODL Voice ID: [id number] Report ID: [id number]
[2022-03-23] MEDS: ZIPRASIDONE MESYLA 20 MG/VIAL IM ONE ×2 (15:38→16:02)
[2022-03-23 16:22] LABS: Body Fluid Source PERITONEAL; Color of fluid Yellow (COLORLESS)
[2022-03-23 16:23] LABS: Appearance SLT. TURBID (CLEAR); Body Fluid WBC 117 /mm^3
[2022-03-23] MEDS: NICOTINE 7 MG/PAT TD SCH (17:29)
[2022-03-23] MEDS: PANTOPRAZOLE 40 MG INJ IVP SCH (20:28)
[2022-03-24 05:53] LABS: Absolute Lymphocytes (CBC) 0.8 K/uL (0.7-4.9); Hematocrit 30.1 % (36.0-45.0); Lymphocytes % 14.7 % (15.3-44.8); MPV 7.9 fL (7.6-11.3); RBC Red Blood Cell Count 3.09 M/uL (3.86-4.86)
[2022-03-24 05:58] LABS: Albumin 2.1 g/dL (3.4-5.0); Bilirubin Total 0.8 mg/dL (0.2-1.0); Magnesium 1.9 mg/dL (1.8-2.4); Phosphorus 4.7 mg/dL (2.5-4.9); Protein, Total 6.5 g/dL (6.4-8.2)
[2022-03-24 06:01] LABS: Potassium 2.6 mmol/L (3.5-5.1)
--- NOTE | 2022-03-24 06:24 | P.PN ---
Date of Service: 03/24/22 Subjective: ROS: 10 point ROS unable to be obtained due to agitation Physical exam GEN: Alert, orientedx3, agitated, slight confusion, cachectic HEENT: Normal conjunctiva, sclera anicteric, temporal wasting CV: Regular rate and rhythm, no edema Pulm: Nonlabored respirations on room air ABD: Soft, nontender, nondistended Neuro: generalized weakness, b/l lower extremities 4/5 Problem List Liver cancer/cirrhosis with hepatic encephalopathy, large volume ascites/history portal venous thrombosis Hyponatremia ESRD on HD MWF Diabetes mellitus type 2insulin-dependent with hyperglycemia Chronic hypotension on midodrine Normocytic anemia ammonia improved, several BMs after lactulose enema more alert/awake, can take PO continue PO lactulose s/p HD yesterday nephro consulted, HD plan for tomorrow patient was agitated for few hours today, yelling/screaming, wanting to leave stated she knows she can , doesn't care, didn't want HD to begin with, but youngest daughter wanted her to patient seems to understand, but doesn't seem to grasp the severity / gravity of the situation. Flight is not for several days, and will be unable to get HD until back in [place] paracentesis planned for today family state she is not normally like this - and seems confused / altered patient does not appear to have full decision making capacity. It is in her best interest / health to remain hospitalized, continue treatment - lactulose, HD tomorrow family in agreement patient eventually calmed down and agreed to stay until tomorrow suspect patient will demand to leave tomorrow after HD Code: full Dispo: home, ~1-2 days Time Spent Managing Pts Care (In Minutes): 35
[2022-03-24] MEDS: INSULIN -REGULAR HUMAN 50 UNIT/0.5 ML ML SQ SCH ×2 (07:30→11:35)
[2022-03-24] MEDS: NICOTINE 7 MG/PAT TD SCH (07:43)
[2022-03-24] MEDS: Rifaximin 550 MG Tab PO SCH (07:43)
[2022-03-24] MEDS: MIDODRINE HCL 5 MG TABLET PO SCH (07:44)
[2022-03-24] MEDS: PANTOPRAZOLE 40 MG INJ IVP SCH ×2 (07:44→07:56)
[2022-03-24] MEDS: LACTULOSE 20 GM/30 ML UCUP PO SCH (07:44)
[2022-03-24] MEDS: ALBUMIN HUMAN 25% 100 ML IV ONE ×2 (08:40→09:35)
[2022-03-24 10:17] VITALS: TEMP 97.6
[2022-03-24 13:37] LABS: Magnesium 1.9 mg/dL (1.8-2.4)
[2022-03-24 13:38] LABS: Potassium 2.7 mmol/L (3.5-5.1)
[2022-03-24 13:43] VITALS: BP 111/58
--- NOTE | 2022-03-25 21:28 | P.DS ---
Admission Date: 03/22/22 Discharge Date: 03/24/22 Disposition: AMA-LEFT AGAINST MEDICAL ADVIC Reason for Admission: Hyponatremia, hepatic encephalopathy Brief History of Present Illness: 61yo F, PMH: liver cancer/cirrhosis, ESRD on HD, chronic hypotension on m idodrine, DM2, who undergoes weekly paracentesis at home in [place] and dialysis . Presented to ED due to altered mental status, abdominal pain, and swelling. Patient came down here for vacation, missed dialysis, and has not been taking her lactulose. She was found to have hepatic encephalopathy. Admitted for further management. Hospital Course: Problem List Liver cancer/cirrhosis with hepatic encephalopathy, large volume ascites/history portal venous thrombosis Hyponatremia ESRD on HD MWF Diabetes mellitus type 2insulin-dependent with hyperglycemia Chronic hypotension on midodrine Normocytic anemia Patient was treated with lactulose enemas, PO lactulose, and diuretics. Nephrology was consulted and patient underwent dialysis. Her ammonia levels improved from >190 to 20s. She underwent paracentesis without complication. She had some mild improvement. Patient refused to remain in the hospital and demanded to leave. After multiple conversations she agreed to stay. She underwent dialysis on 03/24 and was feeling better. She had improvement but still had some electrolyte abnormalities. She again demanded to leave, but had regained decision making capacity. She clearly understood the situation, her prognosis, and the risks involved with leaving the hospital against medical advice. Patient's took her home, with plans on catching a flight back to [place] in ~2 days. Vital Signs/Physical Exam: Temp Pulse Resp BP Pulse Ox 97.6 F 76 18 111/58 L 100 03/24/22 08:00 03/24/22 13:00 03/24/22 11:00 03/24/22 13:00 03/24/22 11:00 Physical exam GEN: Alert, orientedx3, generalized weak HEENT: Normal conjunctiva, sclera anicteric, temporal wasting CV: Regular rate and rhythm, no edema Pulm: Nonlabored respirations on room air ABD: Soft, nontender, +ascites Neuro: generalized weakness, b/l lower extremities 4/5 Laboratory Data at Discharge: WBC 5.2 K/uL (4.3-10.9) 03/24/22 05:03 Hgb 9.9 g/dL (12.0-15.0) L 03/24/22 05:03 Hct 30.1 % (36.0-45.0) L 03/24/22 05:03 Plt Count 88 K/uL (152-406) L 03/24/22 05:03 PT 13.8 SECONDS (9.5-12.5) H 03/22/22 02:33 INR 1.25 03/22/22 02:33 APTT 28.7 SECONDS (24.3-36.9) 03/22/22 02:33 Sodium 132 mmol/L (136-145) L 03/24/22 12:59 Potassium 2.7 mmol/L (3.5-5.1) L* 03/24/22 12:59 BUN 18 mg/dL (7-18) 03/24/22 12:59 Creatinine 3.50 mg/dL (0.55-1.3) H D 03/24/22 12:59 Glucose 176 mg/dL (74-106) H 03/24/22 12:59 Phosphorus 4.7 mg/dL (2.5-4.9) 03/24/22 05:03 Magnesium 1.9 mg/dL (1.8-2.4) 03/24/22 12:59 Total Bilirubin 0.8 mg/dL (0.2-1.0) 03/24/22 05:03 AST 26 U/L (15-37) 03/24/22 05:03 ALT 18 U/L (12-78) 03/24/22 05:03 Alkaline Phosphatase 144 U/L (45-117) H 03/24/22 05:03 Lipase 234 U/L (73-393) 03/22/22 02:33 Home Medications: Insulin Glargine,Hum.rec.anlog [Basaglar Kwikpen U-100] 03/22/22 Lactulose 03/22/22 Midodrine HCl 10 mg PO 03/22/22 Omeprazole 20 mg PO 03/22/22 Ondansetron HCl 4 mg PO 03/22/22 Potassium Chloride 20 meq PO 03/22/22 Rifaximin [Xifaxan] 550 mg PO 03/22/22 Followup: NONE,NONE [Primary Care Provider] - Time spent managing pt's care (in minutes): 45
[2022-03-27 16:58] LABS: GLUCOSE, PERITONEAL FLUID 133 mg/dL; TOTAL PROTEIN,PERITONEAL FLUID <3.0 g/dL
== END 2022-03-24 13:30 | disposition left against medical advice (07) | DRG 441 ==
LOC: ER 01:48 → ERHOLD 04:45 → 3RD-ICU 12:18
PROVIDERS: ADMIT Hospitalist; ATTEND Hospitalist
PROC: 5A1D70Z Performance of Urinary Filtration, Intermittent, Less than 6 Hours Per Day (ICD-10-PCS; 2022-03-22)
PROC: 0W9G3ZZ Drainage of Peritoneal Cavity, Percutaneous Approach (ICD-10-PCS; principal; 2022-03-23)
PROC: 5A1D70Z Performance of Urinary Filtration, Intermittent, Less than 6 Hours Per Day (ICD-10-PCS; 2022-03-24)
DX: K72.90 Hepatic failure, unspecified without coma (principal); G92.8 Other toxic encephalopathy; N18.6 End stage renal disease; R18.8 Other ascites; E87.1 Hypo-osmolality and hyponatremia; C22.0 Liver cell carcinoma; E46 Unspecified protein-calorie malnutrition; R64 Cachexia; K74.60 Unspecified cirrhosis of liver; E11.22 Type 2 diabetes mellitus with diabetic chronic kidney disease; E11.65 Type 2 diabetes mellitus with hyperglycemia; D64.9 Anemia, unspecified; I95.89 Other hypotension; R45.1 Restlessness and agitation; Z68.20 Body mass index [BMI] 20.0-20.9, adult; Z99.2 Dependence on renal dialysis; Z91.15 Patient's noncompliance with renal dialysis; Z86.718 Personal history of other venous thrombosis and embolism; Z53.29 Procedure and treatment not carried out because of patient's decision for other reasons; Z20.822 Contact with and (suspected) exposure to COVID-19
CPT/HCPCS: 36415; 49083; 71045; 74176; 80048; 80053; 82140; 82945; 82947; 83605; 83690; 83735; 83930; 84100; 84145; 84157; 85025; 85610; 85730; 86706; 87040; 87070; 87340; 89050; 90935; 96365; 99285; C9113; J1610; J1644; J1815; J2250; J3486; J7030; J7050; J7799; P9047; U0003